=== PATIENT | female | born 1990 | race African-American/Black ===

== ENCOUNTER 2017-07-10 23:11 | Emergency (ER) | payer BC ==
[2017-07-10 23:17] VITALS: BP 128/67; PULSE 71; RESP 18; TEMP 97.9
--- NOTE | 2017-07-10 23:55 | XR ---
EXAMINATION TYPE: XR cervical spine limited DATE OF EXAM: 07/10/2017 COMPARISON: NONE HISTORY: Neck pain TECHNIQUE: 3 views FINDINGS: There is mild straightening of the vertebra. Posterior elements are intact. Disc spaces are fairly normal. There are no cervical ribs. Atlantoaxial facet joint is normal. IMPRESSION: Mild straightening probably due to position. No fracture seen.
--- NOTE | 2017-07-11 00:09 | ED ---
Skin/Abscess/FB HPI - General Chief complaint: Skin/Abscess/Foreign Body Stated complaint: Lump on Neck Time Seen by Provider: 07/10/17 23:28 Source: patient, RN notes reviewed, old records reviewed Mode of arrival: ambulatory Limitations: no limitations - History of Present Illness Initial comments: This patient is a 27 year old female with CC of lump on the posterior neck. She reports that she just noticed it today. Denies any fever, chills, upper respiratory congestion. She reports that it is not painful, she states that it is just a strange feeling to notice it. She denies pain with ROM of neck. - Related Data Home Medications Medication Instructions Recorded Confirmed No Known Home Medications [No 07/10/17 07/10/17 Known Home Medications] Allergies Allergy/AdvReac Type Severity Reaction Status Date / Time cat dander Allergy Unknown Verified 07/10/17 23:20 dog dander Allergy Unknown Verified 07/10/17 23:20 grass pollen Allergy Unknown Verified 07/10/17 23:20 Review of Systems ROS Statement: Those systems with pertinent positive or pertinent negative responses have been documented in the HPI. ROS Other: All systems not noted in ROS Statement are negative. Past Medical History Past Medical History: No Reported History History of Any Multi-Drug Resistant Organisms: None Reported Past Surgical History: No Surgical Hx Reported Past Psychological History: No Psychological Hx Reported Smoking Status: Never smoker Past Alcohol Use History: None Reported Past Drug Use History: None Reported General Exam - General Exam Comments Initial Comments: This is a well appearing 27 year old female, no distress. Limitations: no limitations General appearance: alert, in no apparent distress Head exam: Present: atraumatic, normocephalic, normal inspection Eye exam: Present: normal appearance, PERRL, EOMI. Absent: scleral icterus, conjunctival injection, periorbital swelling ENT exam: Present: normal exam, mucous membranes moist Neck exam: Present: normal inspection, lymphadenopathy (one small firm left sided posterior cervical lymph node. It is mobile and not erythematous or warm to touch. ). Absent: tenderness, meningismus Respiratory exam: Present: normal lung sounds bilaterally. Absent: respiratory distress, wheezes, rales, rhonchi, stridor Cardiovascular Exam: Present: regular rate, normal rhythm, normal heart sounds. Absent: systolic murmur, diastolic murmur, rubs, gallop, clicks Neurological exam: Present: alert, oriented X3, CN II-XII intact Psychiatric exam: Present: normal affect, normal mood Skin exam: Present: warm, dry, intact, normal color. Absent: rash Course Vital Signs 07/10/17 23:13 Temperature 97.9 F Pulse Rate 71 Respiratory 18 Rate Blood Pressure 128/67 O2 Sat by Pulse 99 Oximetry Medical Decision Making - Medical Decision Making She is a 27 year old female presents with lump over right neck. She has a small lymphnode that is mobile. She has nor upper respiratory symptoms at this time. Cervical spine xray is normal, no sign of calciflied masses. Discussed this is not too concerning and she can follow up with PCP if it becomes bigger or has any other changes. All questions answered and return parameters discussed. Disposition Clinical Impression: Lymphadenopathy Disposition: HOME SELF-CARE Condition: Good Instructions: Lymphadenopathy (ED) Additional Instructions: Patient advised to apply ice over the area. Take Motrin Tylenol for pain. Return to emergency department if any alarming signs or symptoms occur. Referrals: Gloria Osorio DO [Primary Care Provider] - 1-2 days Time of Disposition: 00:08
== END 2017-07-11 00:15 | disposition home or self-care (01) ==
LOC: EC 23:11
DX: R59.1 Generalized enlarged lymph nodes (principal); Z91.048 Other nonmedicinal substance allergy status
CPT/HCPCS: 72040; 99284

== ENCOUNTER → 2018-07-02 | Outpatient (CLI) | payer OTHER ==
--- NOTE | 2018-07-02 10:11 | MR ---
EXAMINATION TYPE: MR brain wo/w con DATE OF EXAM: 07/02/2018 COMPARISON: NONE HISTORY: Chronic headaches daily per order. Additional symptoms of dizziness per patient. TECHNIQUE: Multiplanar, multisequence images of the brain and brainstem is performed without and with IV contras t, utilizing 6.5 mL intravenous Gadavist . FINDINGS: Diffusion weighted images demonstrate no evidence of a recent infarct or other diffusion ab normality. There is no worrisome extra-axial fluid collection. The ventricular system and cisternal spaces are normal in size and appearance. The brain volume is age appropriate. There is single 4 mm T2 hyperintense focus deep white matter left parietal-occipital region axial image 20. Midline structures demonstrate normal morphology. The craniocervical junction appears within normal limits. Post contrast images demonstrate no abnormal enhancement. The dural venous sinuses appear pa tent. The visualized sinuses are clear and the globes are intact. No suspicious fluid signal is seen in mastoid air cells bilaterally. IMPRESSION: Single tiny white matter lesion of uncertain clinical significance. No suspicious enhance ment.
== END ==
LOC: RADMRIMAIN 09:03
PROVIDERS: ATTEND Family Medicine
DX: G44.52 New daily persistent headache (NDPH) (principal)
CPT/HCPCS: 70553; A9585

== ENCOUNTER → 2019-02-09 | Outpatient (CLI) | payer OTHER | END | disposition home or self-care (01) | LOC: LABWHC1 02-08 16:00 | PROVIDERS: ATTEND Family Medicine | DX: K52.9 Noninfective gastroenteritis and colitis, unspecified (principal) | CPT/HCPCS: 87045; 87046 ==

== ENCOUNTER → 2019-11-04 | Outpatient (CLI) | payer OTHER ==
--- NOTE | 2019-11-04 11:52 | NM ---
EXAMINATION TYPE: NM hepatobiliary w EF DATE OF EXAM: 11/04/2019 COMPARISON: NONE HISTORY: Right upper quadrant pain TECHNIQUE: After the intravenous administration of 4 mCi Tc 99m Mebrofenin hepatobiliary scintigraphy is performed. Immediate images post injection. FINDINGS: There is satisfactory initial accumulation of tracer by the liver. The gallbladder is visualized wit hin 30 minutes. The small bowel activity is noted within 30 minutes. At one hour 8 ounces of oral e nsure plus is given to mimic CCK and gallbladder ejection fraction is calculated at 55 %, in the norm al range. Therefore there is no scintigraphic evidence of cystic or common bile duct obstruction to suggest acute cholecystitis or gallbladder dyskinesia. IMPRESSION: Exam is within normal limits.
== END | disposition home or self-care (01) ==
LOC: RADNMMAIN 08:13
PROVIDERS: ATTEND Family Medicine
DX: R10.11 Right upper quadrant pain (principal)
CPT/HCPCS: 78226; A9537

== ENCOUNTER → 2019-11-22 | Day surgery (SDC) | payer OTHER ==
[2019-11-19 15:31] VITALS: BMI 21.9
[~2019-11-22] MED LIST: LACTATED RINGERS 1,000 ML IV SCH; LIDOCAINE 1% (10MG/ML) FOR IV START INTRADERMA PRN; MIDAZOLAM 2 MG/2 ML VIAL ONE; PROPOFOL 10 MG/ML 20 ML VIAL IV ONE; fentaNYL (PF) 50 MCG/ML 2 ML AMP ONE
[2019-11-22 09:18] VITALS: RESP 16; TEMP 97.1
--- NOTE | 2019-11-22 09:50 | P.GSHP ---
History of Present Illness H&P Date: 11/22/19 Chief Complaint: GERD This a 29-year-old female been safe for EGD. She's had issues with GERD. Past Medical History Past Medical History: Asthma, GERD/Reflux History of Any Multi-Drug Resistant Organisms: None Reported Past Surgical History: No Surgical Hx Reported Past Anesthesia/Blood Transfusion Reactions: Motion Sickness Smoking Status: Never smoker - Past Family History Mother Family Medical History: Cancer Additional Family Medical History / Comment(s): breast cancer Medications and Allergies Home Medications Medication Instructions Recorded Confirmed Type Cetirizine HCl [Zyrtec] 10 mg PO DAILY 06/27/19 11/22/19 History Montelukast [Singulair] 10 mg PO HS 06/27/19 11/22/19 History Topiramate [Topamax] 50 mg PO HS 06/27/19 11/22/19 History Allergies Allergy/AdvReac Type Severity Reaction Status Date / Time cat dander AdvReac ITCHY Verified 11/22/19 09:14 EYES, SNEEZING dog dander AdvReac ITCHY Verified 11/22/19 09:14 EYES, SNEEZING grass pollen AdvReac ITCHY Verified 11/22/19 09:14 EYES, SNEEZING Surgical - Exam Vital Signs Temp Pulse Resp BP Pulse Ox 97.1 F L 71 16 129/70 100 11/22/19 09:14 11/22/19 09:14 11/22/19 09:14 11/22/19 09:14 11/22/19 09:14 - General well developed, well nourished - Eyes PERRL - ENT normal pinna - Neck no masses - Respiratory normal expansion - Cardiovascular Rhythm: regular - Abdomen Abdomen: soft, non tender Assessment and Plan Assessment: GERD. We'll perform EGD.
--- NOTE | 2019-11-22 10:00 | P.OP ---
Date of Procedure: 11/22/19 Preoperative Diagnosis: GERD Postoperative Diagnosis: Antral gastritis No significant hiatal hernia Esophageal biopsy pending Procedure(s) Performed: EGD Anesthesia: MAC Surgeon: Bipin Arriaga Pathology: other (Antrum, esophagus) Condition: stable Disposition: PACU Description of Procedure: The patient's placed on the endoscopy table in the lateral position. She received IV sedation. The gastro-placed oropharynx passed in the esophagus and stomach. Scope then placed through the pylorus. The first and second portion of duodenum appeared normal. Scope summer back the antrum was mildly inflamed. Biopsies performed. Scope was unretroflexed and remainder of the stomach appeared normal. The junction was at 47. There is no significant hiatal hernia. The distal esophagus appeared normal. Random biopsies performed. The proximal esophagus appeared normal. Scope was withdrawn for patient. Due to the patient's symptoms of GERD and minimum findings of reflux on EGD a HIDA scan was ordered.
[2019-11-22 10:22] VITALS: BP 111/75; PULSE 80
== END | disposition home or self-care (01) ==
LOC: ORWHC2ENDO 08:57
PROVIDERS: ATTEND Surgery
DX: K29.50 Unspecified chronic gastritis without bleeding (principal); K21.9 Gastro-esophageal reflux disease without esophagitis; J45.909 Unspecified asthma, uncomplicated; Z79.899 Other long term (current) drug therapy; Z91.09 Other allergy status, other than to drugs and biological substances; Z80.3 Family history of malignant neoplasm of breast
CPT/HCPCS: 81025; 88305; 43239; J2250; J3010; J2704

== ENCOUNTER → 2020-11-16 | Outpatient (CLI) | payer OTHER ==
--- NOTE | 2020-11-16 18:20 | CT ---
EXAMINATION TYPE: CT abdomen pelvis w con DATE OF EXAM: 11/16/2020 COMPARISON: None HISTORY: RLQ pain Stat hold and call CT DLP: 427.90 mGycm Automated exposure control for dose reduction was used. CONTRAST: Performed with IV Contrast, patient injected with 100 mL of Isovue 300. Images obtained from the diaphragm to the floor the pelvis with oral and IV contrast. Lung bases are clear of infiltrate. There is no pleural effusion. Heart size is normal. There is no p ericardial effusion. There are small cysts in the liver that measure up to 1 cm. Spleen is intact wit h stomach is intact. There is no pancreatic mass. Gallbladder appears normal. The bile ducts are not dilated. There is no adrenal mass. Kidneys show satisfactory contrast opacific ation. There is no hydronephrosis. Delayed images show normal renal excretion. There is no retroperit butterfield adenopathy. Bladder distends smoothly. Uterus is anteverted. The lumbar vertebra have normal spacing and alignment. Posterior elements are intact. Bony pelvis car ears normal. Hip joints appear normal. There is normal contrast opacification of the large and small bowel. Contrast extends to the hepatic flexure of the colon. Terminal ileum appears normal. Appendix is not seen. There is no sign of thicke popeye appendix. There is no evidence of a pelvic mass. There is no mesenteric edema. There is no ascites or free air. There is no sign of a bowel obstructio n. IMPRESSION: Negative CT scan abdomen and pelvis. Appendix not seen. No sign of thickened appendix.
== END | disposition home or self-care (01) ==
LOC: RADCTMAIN 15:47
PROVIDERS: ATTEND Family Medicine
DX: R10.31 Right lower quadrant pain (principal)
CPT/HCPCS: 74177; Q9967

== ENCOUNTER 2020-11-23 14:59 | Emergency (ER) | payer OTHER ==
[2020-11-23 16:06] LABS: Basophils % (A) 0 %; Eosinophils # (A) 0.1 k/uL (0-0.7); Eosinophils % (A) 1 %; HCT 37.2 % (34.0-46.0); HGB 12.4 gm/dL (11.4-16.0); Lymphocytes # (A) 1.6 k/uL (1.0-4.8); Lymphocytes % (A) 21 %; MCHC 33.5 g/dL (31.0-37.0); MCV 92.6 fL (80.0-100.0); Mean Platelet Volume 8.9; Monocytes # (A) 0.4 k/uL (0-1.0); Monocytes % (A) 6 %; Neutrophils # (A) 5.1 k/uL (1.3-7.7); Neutrophils % (A) 70 %; Platelet Count 224 k/uL (150-450); RBC 4.01 m/uL (3.80-5.40); RDW 13.1 % (11.5-15.5); WBC 7.3 k/uL (3.8-10.6)
[2020-11-23 16:13] LABS: ALT 13 U/L (4-34); AST 22 U/L (14-36); African American GFR (CKD) >90 (>60 ml/min/1.73 sqM); Alkaline Phosphatase 47 U/L (38-126); Amylase 83 U/L (30-110); Anion Gap 7 mmol/L; Blood Urea Nitrogen 10 mg/dL (7-17); Calcium 9.2 mg/dL (8.4-10.2); Carbon Dioxide 23 mmol/L (22-30); Chloride 109 mmol/L (98-107); Glucose 86 mg/dL (74-99); Lipase 121 U/L (23-300); Non-African American GFR(CKD) >90 (>60 ml/min/1.73 sqM); Potassium 4.1 mmol/L (3.5-5.1); Sodium 139 mmol/L (137-145); Total Bilirubin 0.5 mg/dL (0.2-1.3); Total Protein 6.6 g/dL (6.3-8.2)
[2020-11-23 16:34] VITALS: TEMP 98.6
[2020-11-23 16:48] LABS: Appearance,Urine Clear (Clear); Bacteria,Urine Rare /hpf; Bilirubin,Urine Negative (Negative); Blood,Urine Large (Negative); Color,Urine Yellow; Glucose,Urine (UA) Negative (Negative); Hyaline Casts,Urine 1 /lpf (0-2); Ketones,Urine Negative (Negative); Leukocyte Esterase,Urine Negative (Negative); Mucus,Urine Occasional /hpf; Nitrite,Urine Negative (Negative); PH, Urine 5.5 (5.0-8.0); Protein,Urine Trace (Negative); RBC,Urine 99 /hpf (0-5); Specific Gravity,Urine 1.021 (1.001-1.035); Squamous Epithelial Cell,Urine 1 /hpf (0-4); Urobilinogen,Urine <2.0 mg/dL (<2.0); WBC,Urine 3 /hpf (0-5)
[2020-11-23 17:17] VITALS: BP 116/80; PULSE 73; RESP 18
--- NOTE | 2020-11-23 17:29 | ED ---
General Adult HPI - General Chief complaint: Abdominal Pain Stated complaint: Abd pain Time Seen by Provider: 11/23/20 16:29 Source: patient Mode of arrival: EMS Limitations: no limitations - History of Present Illness Initial comments: 30-year-old female presents to the emergency room for a chief complaint of abdominal pain. Patient reports earlier today she had an ALLERGY shot. Patient states after that her abdomen started hurting. States she had vomiting as well as diarrhea. Patient states she presented to the emergency room but then her pain stopped. Patient did have some pain last he does not had a CAT scan which was negative for acute process. Patient is scheduled for an outpatient colonoscopy.Patient has no other complaints at this time including shortness of breath, chest pain, abdominal pain, nausea or vomiting, headache, or visual changes. - Related Data Home Medications Medication Instructions Recorded Confirmed Cetirizine HCl [Zyrtec] 10 mg PO DAILY 06/27/19 11/22/19 Montelukast [Singulair] 10 mg PO HS 06/27/19 11/22/19 Topiramate [Topamax] 50 mg PO HS 06/27/19 11/22/19 Allergies Allergy/AdvReac Type Severity Reaction Status Date / Time cat dander AdvReac ITCHY Verified 11/23/20 15:26 EYES, SNEEZING dog dander AdvReac ITCHY Verified 11/23/20 15:26 EYES, SNEEZING grass pollen AdvReac ITCHY Verified 11/23/20 15:26 EYES, SNEEZING Review of Systems ROS Statement: Those systems with pertinent positive or pertinent negative responses have been documented in the HPI. ROS Other: All systems not noted in ROS Statement are negative. Past Medical History Past Medical History: Asthma, GERD/Reflux History of Any Multi-Drug Resistant Organisms: None Reported Past Surgical History: No Surgical Hx Reported Past Anesthesia/Blood Transfusion Reactions: Motion Sickness Past Psychological History: No Psychological Hx Reported Smoking Status: Never smoker Past Alcohol Use History: None Reported Past Drug Use History: None Reported - Past Family History Mother Family Medical History: Cancer Additional Family Medical History / Comment(s): breast cancer General Exam Limitations: no limitations General appearance: alert, in no apparent distress Head exam: Present: atraumatic, normocephalic, normal inspection Eye exam: Present: normal appearance, PERRL, EOMI. Absent: scleral icterus, conjunctival injection, periorbital swelling ENT exam: Present: normal exam, mucous membranes moist Neck exam: Present: normal inspection, full ROM. Absent: tenderness, meningismus, lymphadenopathy Respiratory exam: Present: normal lung sounds bilaterally. Absent: respiratory distress, wheezes, rales, rhonchi, stridor Cardiovascular Exam: Present: regular rate, normal rhythm, normal heart sounds. Absent: systolic murmur, diastolic murmur, rubs, gallop, clicks GI/Abdominal exam: Present: soft, normal bowel sounds. Absent: distended, tenderness, guarding, rebound, rigid Neurological exam: Present: alert Course Vital Signs 11/23/20 11/23/20 11/23/20 15:21 16:19 17:16 Temperature 98.7 F 98.6 F Pulse Rate 58 L 64 73 Respiratory 17 20 18 Rate Blood Pressure 117/68 118/72 116/80 O2 Sat by Pulse 98 100 100 Oximetry Medical Decision Making - Medical Decision Making Vitals are stable. Patient is well-appearing. Patient is denying any symptoms at this time. States she has 0 out of 10 abdominal pain. No more nausea vomiting diarrhea. CBC shows a normal white count of 7.3. CMP unremarkable. Lipase is normal. Urinalysis shows 99 red blood cells patient reports she is currently menstruating. At this time given no abdominal pain patient can be discharged home to follow up with primary care and GI. She will return here for any worsening symptoms. - Lab Data Result diagrams: 11/23/20 15:44 11/23/20 15:44 Lab Results 11/23/20 11/23/20 11/23/20 Range/Units 15:44 15:44 15:44 WBC 7.3 (3.8-10.6) k/uL RBC 4.01 (3.80-5.40) m/uL Hgb 12.4 (11.4-16.0) gm/dL Hct 37.2 (34.0-46.0) % MCV 92.6 (80.0-100.0) fL MCH 31.0 (25.0-35.0) pg MCHC 33.5 (31.0-37.0) g/dL RDW 13.1 (11.5-15.5) % Plt Count 224 (150-450) k/uL MPV 8.9 Neutrophils % 70 % Lymphocytes % 21 % Monocytes % 6 % Eosinophils % 1 % Basophils % 0 % Neutrophils # 5.1 (1.3-7.7) k/uL Lymphocytes # 1.6 (1.0-4.8) k/uL Monocytes # 0.4 (0-1.0) k/uL Eosinophils # 0.1 (0-0.7) k/uL Basophils # 0.0 (0-0.2) k/uL Sodium (137-145) mmol/L Potassium (3.5-5.1) mmol/L Chloride (98-107) mmol/L Carbon Dioxide (22-30) mmol/L Anion Gap mmol/L BUN (7-17) mg/dL Creatinine (0.52-1.04) mg/dL Est GFR (CKD-EPI)AfAm (>60 ml/min/1.73 sqM) Est GFR (CKD-EPI)NonAf (>60 ml/min/1.73 sqM) Glucose (74-99) mg/dL Calcium (8.4-10.2) mg/dL Total Bilirubin (0.2-1.3) mg/dL AST (14-36) U/L ALT (4-34) U/L Alkaline Phosphatase (38-126) U/L Total Protein (6.3-8.2) g/dL Albumin (3.5-5.0) g/dL Amylase (30-110) U/L Lipase (23-300) U/L Urine Color Yellow Urine Appearance Clear (Clear) Urine pH 5.5 (5.0-8.0) Ur Specific [place] 1.021 (1.001-1.035) Urine Protein Trace H (Negative) Urine Glucose (UA) Negative (Negative) Urine Ketones Negative (Negative) Urine Blood Large H (Negative) Urine Nitrite Negative (Negative) Urine Bilirubin Negative (Negative) Urine Urobilinogen <2.0 (<2.0) mg/dL Ur Leukocyte Esterase Negative (Negative) Urine RBC 99 H (0-5) /hpf Urine WBC 3 (0-5) /hpf Ur Squamous Epith Cells 1 (0-4) /hpf Urine Bacteria Rare H (None) /hpf Hyaline Casts 1 (0-2) /lpf Urine Mucus Occasional H (None) /hpf Urine HCG, Qual Not Detected (Not Detectd) 11/23/20 Range/Units 15:44 WBC (3.8-10.6) k/uL RBC (3.80-5.40) m/uL Hgb (11.4-16.0) gm/dL Hct (34.0-46.0) % MCV (80.0-100.0) fL MCH (25.0-35.0) pg MCHC (31.0-37.0) g/dL RDW (11.5-15.5) % Plt Count (150-450) k/uL MPV Neutrophils % % Lymphocytes % % Monocytes % % Eosinophils % % Basophils % % Neutrophils # (1.3-7.7) k/uL Lymphocytes # (1.0-4.8) k/uL Monocytes # (0-1.0) k/uL Eosinophils # (0-0.7) k/uL Basophils # (0-0.2) k/uL Sodium 139 (137-145) mmol/L Potassium 4.1 (3.5-5.1) mmol/L Chloride 109 H (98-107) mmol/L Carbon Dioxide 23 (22-30) mmol/L Anion Gap 7 mmol/L BUN 10 (7-17) mg/dL Creatinine 0.78 (0.52-1.04) mg/dL Est GFR (CKD-EPI)AfAm >90 (>60 ml/min/1.73 sqM) Est GFR (CKD-EPI)NonAf >90 (>60 ml/min/1.73 sqM) Glucose 86 (74-99) mg/dL Calcium 9.2 (8.4-10.2) mg/dL Total Bilirubin 0.5 (0.2-1.3) mg/dL AST 22 (14-36) U/L ALT 13 (4-34) U/L Alkaline Phosphatase 47 (38-126) U/L Total Protein 6.6 (6.3-8.2) g/dL Albumin 4.0 (3.5-5.0) g/dL Amylase 83 (30-110) U/L Lipase 121 (23-300) U/L Urine Color Urine Appearance (Clear) Urine pH (5.0-8.0) Ur Specific [place] (1.001-1.035) Urine Protein (Negative) Urine Glucose (UA) (Negative) Urine Ketones (Negative) Urine Blood (Negative) Urine Nitrite (Negative) Urine Bilirubin (Negative) Urine Urobilinogen (<2.0) mg/dL Ur Leukocyte Esterase (Negative) Urine RBC (0-5) /hpf Urine WBC (0-5) /hpf Ur Squamous Epith Cells (0-4) /hpf Urine Bacteria (None) /hpf Hyaline Casts (0-2) /lpf Urine Mucus (None) /hpf Urine HCG, Qual (Not Detectd) Disposition Clinical Impression: Nausea vomiting and diarrhea, Abdominal pain Disposition: HOME SELF-CARE Condition: Good Instructions (If sedation given, give patient instructions): Abdominal Pain (ED) Additional Instructions: Please follow-up with your doctor in one to 2 days. Return to the emergency room for any worsening symptoms. Is patient prescribed a controlled substance at d/c from ED?: No Referrals: Gloria Osorio DO [Primary Care Provider] - 1-2 days Time of Disposition: 17:29
== END 2020-11-23 17:54 | disposition home or self-care (01) ==
LOC: EC 14:59
DX: R11.2 Nausea with vomiting, unspecified (principal); R19.7 Diarrhea, unspecified; R10.9 Unspecified abdominal pain; J45.909 Unspecified asthma, uncomplicated; Z79.51 Long term (current) use of inhaled steroids; Z91.09 Other allergy status, other than to drugs and biological substances
CPT/HCPCS: 36415; 80053; 81001; 81025; 82150; 83690; 85025; 99284

== ENCOUNTER 2020-12-10 09:37 | Day surgery (SDC) | payer OTHER ==
[2020-12-07 11:47] VITALS: BMI 19.5
[~2020-12-10 09:37] MED LIST changes: -LIDOCAINE 1% (10MG/ML) FOR IV START INTRADERMA PRN; -MIDAZOLAM 2 MG/2 ML VIAL ONE; -PROPOFOL 10 MG/ML 20 ML VIAL IV ONE; -fentaNYL (PF) 50 MCG/ML 2 ML AMP ONE
[2020-12-10 10:36] VITALS: RESP 16; TEMP 98.4
[2020-12-10] MEDS ORDERED: LIDOCAINE 1% (10MG/ML) FOR IV START INTRADERMA ONE (10:50)
[2020-12-10] MEDS ORDERED: LIDOCAINE 1% INJ 10MG/ML (20 ML MDV) ONE (11:12)
[2020-12-10] MEDS ORDERED: PROPOFOL 10 MG/ML 20 ML VIAL IV ONE (11:12)
--- NOTE | 2020-12-10 11:15 | P.GSHP ---
History of Present Illness H&P Date: 12/10/20 Chief Complaint: Diarrhea The 22-year-old female who presents today for colonoscopy. Patient has issues with diarrhea. Past Medical History Past Medical History: Asthma, GERD/Reflux Additional Past Medical History / Comment(s): Having abd. pain History of Any Multi-Drug Resistant Organisms: None Reported Past Surgical History: No Surgical Hx Reported Additional Past Surgical History / Comment(s): Gr[place] tooth Past Anesthesia/Blood Transfusion Reactions: Motion Sickness Smoking Status: Never smoker - Past Family History Mother Family Medical History: Cancer Additional Family Medical History / Comment(s): breast cancer Medications and Allergies Home Medications Medication Instructions Recorded Confirmed Type Cetirizine HCl [Zyrtec] 10 mg PO DAILY 06/27/19 12/10/20 History Montelukast [Singulair] 10 mg PO HS 06/27/19 12/10/20 History Topiramate [Topamax] 50 mg PO HS 06/27/19 12/10/20 History Azelastine/Fluticasone 1 spray EA NOSTRIL DAILY 12/07/20 12/10/20 History [Azelastin-Flutic 137-50Mcg Spr] Allergies Allergy/AdvReac Type Severity Reaction Status Date / Time cat dander AdvReac ITCHY Verified 12/10/20 10:42 EYES, SNEEZING dog dander AdvReac ITCHY Verified 12/10/20 10:42 EYES, SNEEZING grass pollen AdvReac ITCHY Verified 12/10/20 10:42 EYES, SNEEZING Surgical - Exam Vital Signs Temp Pulse Resp BP Pulse Ox 98.4 F 75 16 137/78 100 12/10/20 10:35 12/10/20 10:35 12/10/20 10:35 12/10/20 10:35 12/10/20 10:35 - General well developed, well nourished, no distress - Eyes PERRL - ENT normal pinna - Neck no masses - Respiratory normal expansion - Cardiovascular Rhythm: regular - Abdomen Abdomen: soft, non tender Assessment and Plan Assessment: Diarrhea. We'll perform colonoscopy.
--- NOTE | 2020-12-10 11:25 | P.OP ---
Date of Procedure: 12/10/20 Preoperative Diagnosis: Diarrhea Postoperative Diagnosis: Colon, rectal biopsy pathology pending Procedure(s) Performed: Colonoscopy Anesthesia: MAC Surgeon: Bipin Arriaga Pathology: other (Rectum) Condition: stable Disposition: PACU Description of Procedure: The patient's placed on the endoscopy table lateral position. She received IV sedation. Digital rectal exam was performed which revealed no abnormalities. Possible colonoscope was then placed patient anus and passed throughout the entire colon. The ileocecal valve was visualized. The cecum, ascending and transverse colon appeared normal. The descending and sigmoid colon appeared all. Scope back the rectum this appeared normal. Due to the patient's symptoms of diarrhea a random rectal biopsies performed. Scope was withdrawn for patient.
[2020-12-10 11:46] VITALS: BP 112/64; PULSE 83
== END 2020-12-10 12:21 | disposition home or self-care (01) ==
LOC: ORWHC2ENDO 09:37
PROVIDERS: ATTEND Surgery
DX: R19.7 Diarrhea, unspecified (principal); J45.909 Unspecified asthma, uncomplicated; K21.9 Gastro-esophageal reflux disease without esophagitis; R10.9 Unspecified abdominal pain; Z80.3 Family history of malignant neoplasm of breast; Z79.899 Other long term (current) drug therapy
CPT/HCPCS: 45380; 81025; 88305; J2001; J2704